=== PATIENT | male | born 1960 | race Two or more races ===

== ENCOUNTER 2024-08-31 11:34 | Emergency (ER) | payer MEDICAID, SELFPAY ==
[2024-08-31 11:53] VITALS: BP 120/80; PULSE 96; RESP 20; TEMP 37.2; O2SAT 98; BMI 24.9
--- NOTE | 2024-08-31 12:21 | XR_ITS ---
Examination: CT brain head without contrast. 2-D sagittal coronal reconstructions Date and time of exam:August 31, 2024 1346 hrs. Indications: Headaches beginning 4 days ago CTDI: vol (mGy):52 DLP: (mGycm):1009 Technique: Multiple CT axial sections of the brain have been obtained, 5 mm slice thickness. Contrast has not been administered. 2-D sagittal, coronal reconstructions have been obtained Low dose protocols were performed. One or more of the following dose reduction techniques were used; automated exposure control, adjustment of the mA and/or KV according to patient size, use of iterative reconstruction technique. Findings: No significant ventricular enlargement. Subacute/chronic subdural hygromas, on the left side at the level of the frontal horns measuring up to 12 mm on the right side measuring up to 6 mm Intra-axial or extra-axial hemorrhage density is not seen. No mass effect or midline shift Basal cisterns are not remarkable. Fourth ventricle is midline. Old deformity left frontal bone axial image 08/31/2024 inferior Impression: Negative for acute hemorrhage, mass effect or midline shift Prominent bilateral subacute/chronic subdural hygromas as above, recommend 2-3 day follow-up CT brain scan to document stability of these hygromas
--- NOTE | 2024-08-31 12:22 | PD.EDRME ---
Rapid Medical Screening Exam RME Arrival date/time: 08/31/24 11:34 64-year-old male presents the emergency department complains of headache Chief Complaint: Flu Like Symptoms Time Seen by Provider: 08/31/24 11:45 Vital signs: Vital Signs Temperature 99.0 F 08/31/24 11:53 Pulse Rate 96 08/31/24 11:53 Respiratory Rate 20 08/31/24 11:53 Blood Pressure 120/80 08/31/24 11:53 Pulse Oximetry (%) 98 08/31/24 11:53 Oxygen Delivery Method Room Air 08/31/24 11:53
[2024-08-31 13:05] LABS: Collection Type, Urine Clean Catch
[2024-08-31 13:08] LABS: Basophils % (Auto) 1 % (0-2.5); Eosinophils # (Auto) 0.1 Thou/mm3 (0.0-0.5); Eosinophils % (Auto) 1 % (0-10); Hematocrit 34.4 % (41.0-53.0); Hemoglobin 12.2 g/dL (13.5-16.0); Immature Granulocytes % (Auto) 0 % (0-0); Immature Granulocytes Auto 0.02 Thou/mm3 (0.00-0.00); Lymphocytes # (Auto) 1.7 Thou/mm3 (1.0-4.8); Lymphocytes % (Auto) 21 % (10-50); Mean Corpuscular HGB Conc 35.5 g/dl (31.0-37.0); Mean Corpuscular Volume 90 fL (80-100); Monocytes # (Auto) 0.5 Thou/mm3 (0.0-0.8); Monocytes % (Auto) 6 % (0-12); Neutrophils # (Auto) 5.9 Thou/mm3 (1.8-7.7); Neutrophils % (Auto) 72 % (37-80); Nucleated Red Blood Cell % 0 /100 WBC (0); Platelet Count 321 Thou/mm3 (140-440); RDW Standard Deviation 39.2 fL (35.1-43.9); Red Blood Count 3.81 Miln/mm3 (4.50-5.90); White Blood Count 8.2 Thou/mm3 (3.8-10.6)
[2024-08-31 13:27] LABS: Alanine Aminotransferase 12 U/L (10-49); Albumin, Serum 4.7 gm/dL (3.4-4.8); Albumin/Globulin Ratio 1.3 (1.2-2.2); Alkaline Phosphatase 140 U/L (46-116); Anion Gap 10 (7-16); Aspartate Amino Transferase < 8 U/L (0-34); BUN/Creatinine Ratio 15 Ratio (12-20); Bilirubin,Total 0.5 mg/dL (0.3-1.2); Blood Urea Nitrogen 27 mg/dL (9-23); Calcium 9.7 mg/dL (8.3-10.6); Calcium (Corrected) 9.7 mg/dL (8.5-10.1); Carbon Dioxide 26.3 mMol/L (20.0-31.0); Chloride 96 mMol/L (98-107); Creatinine (Component) 1.8 mg/dL (0.6-1.3); Estimated Creatinine Clearance 33.8 mL/min (>60); Globulin 3.6 gm/dL (2.3-3.5); Osmolality,Calculated 289 (275-295); Potassium 4.2 mMol/L (3.4-5.1); Sodium 132 mMol/L (136-145); Total Protein 8.3 gm/dL (5.7-8.2); eGFR 41 See Note
[2024-08-31 13:29] LABS: Bilirubin,Urine Negative (Negative); Blood,Urine Negative (Negative); Clarity,Urine Clear (Clear/Hazy); Color,Urine Lt-Yellow (Lt Yel-Yel); Culture Indicated,Urine Not Indicated; Glucose, Urine 4+ (Negative); Hyaline Casts,Urine < 1 /hpf (0-1); Ketones,Urine Negative (Negative); Leukocyte Esterase,Urine Positive (Negative); Nitrite,Urine Negative (Negative); PH,Urine 5.5 (5.0-7.0); Protein,Urine Trace (Neg - Trace); RBC,Urine 4 /hpf (0-3); Specific Gravity,Urine 1.027 (1.001-1.035); Squamous Epithelial Cell,Urine 5 /hpf (0-5); Urobilinogen,Urine Negative mg/dL (0.0-1.0); WBC,Urine 9 /hpf (0-5)
[2024-08-31 13:31] LABS: Glucose 462 mg/dL (74-106)
[2024-08-31] MEDS: INSULIN HUM REGULAR 1 UNIT/0.01 ML (PER UNIT) 5 UNIT SC (14:44)
--- NOTE | 2024-08-31 15:11 | PD.EDADULT ---
ED General RME/HPI General Chief complaint: Flu Like Symptoms Stated complaint: HEADACHE, AND BODYACHES Time Seen by Provider: 08/31/24 11:45 Arrival date/time: 08/31/24 11:34 RME / HPI RME / HPI narrative: 64-year-old male patient with significant history of hypertension, diabetes mellitus, came in for evaluation regarding headache. Patient has been having headache, and bodyaches for several days, described as dull ache, separately mild. Patient denies any slurring of speech denies any upper or lower extremity weakness. Patient is ambulatory. Denies any head trauma. Denies any fall. Denies any fever. No medications taken prior travel. Patient told me that prior to coming he ate a large breakfast. And did not take his insulin Related Data Allergies Allergy/AdvReac Type Severity Reaction Status Date / Time No Known Allergies Allergy Verified 08/31/24 11:37 Review of Systems Review of Systems Narrative Review of Systems: Review of system reviewed and within normal limits except mentioned in HPI ED Exam Narrative Physical exam: VITAL SIGNS: Reviewed. GENERAL APPEARANCE: Alert and interactive, follows commands, no acute distress, HEAD AND FACE: Non-traumatic. ENT: PERRL, pink conjunctivitis, eyelid no trauma, Mucous membrane moist. NECK: Supple, nontender, no nuchal rigidity. CHEST: No tenderness, no crepitus, no paradoxical movement, no retractions. LUNGS: Clear, well ventilated, symmetric, no rales, no wheezing, no ronchi, no stridor, good breath sounds bilaterally. HEART: Regular rate, regular rhythm, no murmur, no gallops. ABDOMEN: Soft, positive bowel sounds, nondistended, no guarding, nontender, no rebound, no masses, RECTAL: Deferred. GENITAL: Deferred. NEUROLOGICAL: Gross motor function intact sensory function intact, Appropriate for age. MUSCULOSKELETAL: low back nontender, full range of motion. EXTREMITIES: Nontender, full range of motion. SKIN: Color pink, dry, no rash, no lacerations, no abrasions, no contusions. LYMPHATICS: Deferred. Course Quality Measures none Orders Category Date Time Status CT head/brain wo con Stat Exams 08/31/24 12:21 Completed CBC Stat Lab 08/31/24 12:45 Completed Comprehensive Metabolic Panel Stat Lab 08/31/24 12:45 Completed UA, C/S IF [Urinalysis, C/S if Indicated] Stat Lab 08/31/24 12:55 Completed HYDROcodone/APAP 10/325 [[place] 10/325] Med 08/31/24 15:14 Discontinued 1 tab PO X1 ONE Insulin Regular Med 08/31/24 14:36 Discontinued 5 unit SC X1 ONE Sodium Chloride 0.9% 1000 ml [Ns] 1,000 ml Med 08/31/24 14:36 Discontinued IV 999 mls/hr Vital Signs Vital signs: Vital Signs Temperature 99.0 F 08/31/24 11:53 Pulse Rate 96 08/31/24 11:53 Respiratory Rate 20 08/31/24 11:53 Blood Pressure 120/80 08/31/24 11:53 Pulse Oximetry (%) 98 08/31/24 11:53 Oxygen Delivery Method Room Air 08/31/24 11:53 [facility] Patient data External records reviewed:: None Clinical information provided by:: patient Social determinants that could affect healthcare access:: none Patient has the following chronic illnesses:: Hypertension, diabetes mellitus How is presenting disease/condition affected by chronic disease/condition?: exacerbated by Evaluation data The following diagnostics were reviewed and interpreted by me:: lab results and radiology exam(s) Lab and/or radiology exams considered but not ordered:: None Interpretation Summary: See results in the MDM Medications Medications considered but not ordered:: None Medication administrations:: Medication Administration History Discontinued Medications Hydrocodone Bitart/Acetaminophen (Hydrocodone/Apap 10/325 Tab) 1 tab PO X1 ONE Stop: 08/31/24 15:15 Last Admin: 08/31/24 16:28 Dose: 1 tab Documented By: LAINEY Sodium Chloride (Ns) 1,000 mls @ 999 mls/hr IV .Q1H1M ONE Stop: 08/31/24 15:36 Last Admin: 08/31/24 16:27 Dose: 999 mls/hr Documented By: LAINEY Insulin Human Regular (Insulin Hum Regular 1 Unit/0.01 Ml (Per Unit)) 5 unit SC X1 ONE Stop: 08/31/24 14:37 Last Admin: 08/31/24 14:44 Dose: 5 unit Documented By: LAINEY Co-signed By: MICHELLE [place] insulin and IV fluids for hydration Consultations Consultation(s) initiated? (list below): No Diagnosis Differential Diagnosis ED Complaint MDM: Hyperglycemia headache chronic hygromas Most likely diagnosis given after review of the tests above:: Hyperglycemia no headache Admission Indicated Admission indicated?: not indicated Explain why admission is indicated or not indicated:: Stable for discharge Admission Request Was there a request for admission?: No Disposition Plan Disposition Plan: Discharge Discharge Attestation Discharge Attestation: The patient and all family members were given an opportunity to ask questions and understood the discharge instructions. Discharge instructions specifically effects, indications for sooner follow up or return to the emergency department, and the expected course of current diagnosis. Patient condition: Stable Medical Decision Making MDM Narrative MDM Narrative: 64-year-old male patient with significant history of hypertension, diabetes mellitus, came in for evaluation regarding headache. Patient has been having headache, and bodyaches for several days, described as dull ache, separately mild. Patient denies any slurring of speech denies any upper or lower extremity weakness. Patient is ambulatory. Denies any head trauma. Denies any fall. Denies any fever. No medications taken prior travel. Patient ate large breakfast and did not take his insulin today. Laboratory workup is significant for blood sugar of 462 with no sign of diabetic acidosis. Creatinine was also noted to be slightly elevated 1.8 B[address] of 27. Patient CT scan of the head showed Negative for acute hemorrhage, mass effect or midline shift Prominent bilateral subacute/chronic subdural hygromas as above, recommend 2-3 day follow-up CT brain scan to document stability of these hygromas Patient received IV fluids for hydration and insulin subcu. While he receiving the medications, patient was drinking sugary drinks and eating chips in the ED. Patient was advised to watch for sugar intake and take the insulin on a regular basis as scheduled by PCP. Patient headache is totally gone. Patient stable for discharge. Differential Diagnosis Differential Diagnosis: Hyperglycemia headache chronic hygromas Lab Data 08/31/24 12:45 08/31/24 12:45 Labs: Lab Results 08/31/24 08/31/24 Range/Units 12:45 12:55 WBC 8.2 (3.8-10.6) Thou/mm3 RBC 3.81 L (4.50-5.90) Miln/mm3 Hgb 12.2 L (13.5-16.0) g/dL Hct 34.4 L (41.0-53.0) % MCV 90 (80-100) fL MCH 32.0 (25.0-35.0) pg MCHC 35.5 (31.0-37.0) g/dl RDW Std Deviation 39.2 (35.1-43.9) fL Plt Count 321 (140-440) Thou/mm3 Neut % (Auto) 72 (37-80) % Lymph % (Auto) 21 (10-50) % [place] % (Auto) 6 (0-12) % Eos % (Auto) 1 (0-10) % Baso % (Auto) 1 (0-2.5) % Neut # (Auto) 5.9 (1.8-7.7) Thou/mm3 Lymph # (Auto) 1.7 (1.0-4.8) Thou/mm3 Crawford # (Auto) 0.5 (0.0-0.8) Thou/mm3 Eos # (Auto) 0.1 (0.0-0.5) Thou/mm3 Baso # (Auto) 0.0 (0.0-0.2) Thou/mm3 Immature Gran # (Auto) 0.02 H (0.00-0.00) Thou/mm3 Absolute Nucleated RBC 0.00 (0.00-0.00) Thou/mm3 Immature Gran % 0 (0-0) % Nucleated RBC % 0 (0) /100 WBC Sodium 132 L (136-145) mMol/L Potassium 4.2 (3.4-5.1) mMol/L Chloride 96 L (98-107) mMol/L Carbon Dioxide 26.3 (20.0-31.0) mMol/L Anion Gap 10 (7-16) BUN 27 H (9-23) mg/dL Creatinine 1.8 H (0.6-1.3) mg/dL Estim Creat Clear Calc 33.8 L (>60) mL/min eGFR 41 L (60 - ) See Note BUN/Creatinine Ratio 15 (12-20) Ratio Glucose 462 H* (74-106) mg/dL Calculated Osmolality 289 (275-295) Calcium 9.7 (8.3-10.6) mg/dL Corrected Calcium 9.7 (8.5-10.1) mg/dL Total Bilirubin 0.5 (0.3-1.2) mg/dL AST < 8 (0-34) U/L ALT 12 (10-49) U/L Alkaline Phosphatase 140 H (46-116) U/L Total Protein 8.3 H (5.7-8.2) gm/dL Albumin 4.7 (3.4-4.8) gm/dL Globulin 3.6 H (2.3-3.5) gm/dL Albumin/Globulin Ratio 1.3 (1.2-2.2) Ur Collection Type Clean Catch Urine Color Lt-Yellow (Lt Yel-Yel) Urine Clarity Clear (Clear/Hazy) Urine pH 5.5 (5.0-7.0) Ur Specific [place] 1.027 (1.001-1.035) Urine Protein Trace (Neg - Trace) Urine Glucose (UA) 4+ A (Negative) Urine Ketones Negative (Negative) Urine Blood Negative (Negative) Urine Nitrite Negative (Negative) Urine Bilirubin Negative (Negative) Urine Urobilinogen (Auto) Negative (0.0-1.0) mg/dL Ur Leukocyte Esterase Positive (Negative) Urine RBC 4 H (0-3) /hpf Urine WBC 9 H (0-5) /hpf Ur Squamous Epith Cells 5 (0-5) /hpf Urine Bacteria None (None) Hyaline Casts < 1 (0-1) /hpf Ur Culture Indicated? Not Indicated Discharge Plan Plan Patient Disposition: HOME (Self Care) Disposition Comment: Stable Prescriptions/Referrals Referrals: Rizwan Reaves MD [Primary Care Provider] - In 1 week Problem List Clinical Impression: Headache, Hyperglycemia Patient/Caregiver Discharge Instructions Discharge Activity: activity as tolerated Education Materials: Self-Care for Headaches, ED Diabetes with High Blood Sugar Additional Instructions: Thank you for the opportunity for serving you today. You are stable for discharged . You are advised to: Follow-up with your PCP in 1 to 2 days and follow-up with your PCP in few days for repeat CT scan of your head, today CT scan showed chronic hygromas. Return to ED for worsening of symptoms Increase oral fluids Take medication as prescribed Please watch your sugar intake make sure you are taking your medication for diabetes also. Print Language: Albanian Stand Alone Forms: [employer] Award Info., Patient Portal Info Letter PA/REFRIGERATOR ROOM CLERK Supervising Physician PA/REFRIGERATOR ROOM CLERK Supervising Physician: MD Albertina
[2024-08-31 15:25] VITALS: BP 140/98; PULSE 98; RESP 19; TEMP 37.5; O2SAT 99
[2024-08-31] MEDS: SODIUM CHLORIDE 0.9% 1000 ML 1,000 ML 999 ML IV (16:27)
[2024-08-31] MEDS: HYDROcodone/APAP 10/325 TAB PO (16:28)
== END 2024-08-31 17:19 | disposition home or self-care (01) ==
PROVIDERS: Nurse Practitioner Primary Care; Emergency Provider Emergency Medicine; PCP Family Medicine
DX: E11.65 Type 2 diabetes mellitus with hyperglycemia (principal); G96.00 Cerebrospinal fluid leak, unspecified; Z79.4 Long term (current) use of insulin
CPT/HCPCS: 36415; 70450; 80053; 81001; 85025; 96372; 99284; J1815; J7030; A9270